=== PATIENT | male | born 1990 | race Caucasian/White ===

== ENCOUNTER → 2023-08-17 10:40 | Outpatient (BNVA) | payer MEDICAID, SELFPAY | PROVIDERS: Family Provider Family Medicine; PCP Pediatrics; Visit Provider Specialist | DX: M25.561 Pain in right knee (principal) | CPT/HCPCS: 73560; 73565 ==

== ENCOUNTER 2023-09-15 12:37 | Outpatient (CLI) | payer MEDICAID, SELFPAY ==
--- NOTE | 2023-09-15 12:42 | MR_ITS ---
WS: [id number] MRI RIGHT KNEE ARTHROGRAM TECHNIQUE: Axial PD, coronal PD fat sat, coronal PD, sagittal PD, and sagittal PD fat-sat images obta ined. Multiplanar imaging obtained post intra-articular administration of gadolinium. CLINICAL INFORMATION: M25.569 - Pain in unspecified knee COMPARISON: 2015 FINDINGS: Distal quadriceps and patella tendons are intact. Hypertrophic patella. ACL and PCL are intact. Mild chondromalacia patella worse involving the medial patella facet. Tiny suprapatellar effusion. Normal bone marrow signal in the patella. No subchondral edema. Medial and lateral patellar retinaculum appe ar intact. Medial and lateral collateral ligaments are intact. Normal popliteus. Normal popliteal fos sa. Small amount of prepatellar soft tissue edema with a small fluid collection suspicious for prepatella r bursitis. Infrapatellar soft tissue edema. Previously described tear involving the medial meniscus with presumed interval meniscectomy. Blunting and thinning of the medial meniscus with post meniscectomy changes in the medial joint compartment. Chondromalacia medial joint compartment with subchondral edema in the medial tibial plateau. Chronic thinning of the lateral meniscus has progressed compared to previous. Blunting of the meniscal root a nd anterior horn lateral meniscus progressed compared to previous. Post arthrogram images demonstrate contrast extending into the meniscectomy defect in the medial join t compartment. Contrast extends into the anterior horn lateral meniscus at the meniscal root consiste nt with lateral meniscal root tear. Blunting of the anterior horn. This is new from previous. IMPRESSION: 1. Prepatellar soft tissue edema with a small fluid collection suspicious for prepatellar bursitis. 2. ACL and PCL are intact. 3. Evidence of prior medial meniscectomy since the prior examination 2014. Chronic thinning of the m edial joint compartment with subchondral edema in the medial tibial plateau. 4. Dissecting contrast extends into the lateral meniscus anterior horn and meniscal root compatible with lateral meniscal tear which appears new from previous. Dissecting contrast seen on the arthrogra m images. Blunting of the anterior horn and meniscal root. 5. Mild chondromalacia patella worse in the medial patella facet. [facility] grading: grade III: partial-thickness cartilage loss with focal ulceration
--- NOTE | 2023-09-15 13:00 | IR_ITS ---
WS: [id number] RIGHT KNEE ARTHROGRAM Fluoroscopic guided right knee arthrogram. CLINICAL INFORMATION: right knee pain, prior knee surgery COMPARISON: None. TECHNIQUE: The procedure including risks, benefits, and complications were discussed with the patient , who agreed to proceed. Timeout was performed. Using sterile technique, the patient was prepped and draped in the usual sterile fashion. After 1% lidocaine injection using fluoroscopic guidance, a 22-g auge spinal needle was advanced into the RIGHT patellofemoral compartment. Subsequently 30 cc of a mi xture containing 10 cc 1% lidocaine, 20 cc normal saline, 10 cc Omnipaque 240, and 0.2 cc gadolinium was administered. No immediate complications. FLUOROSCOPY TIME: 4min [id number] # of spot films: 3 IMPRESSION: Uncomplicated right knee fluoroscopic guided arthrogram. MRI to follow.
== END 2023-09-15 12:38 | disposition home or self-care (01) ==
LOC: RAD 12:38
PROVIDERS: PCP Pediatrics; Visit Provider Specialist
DX: M22.41 Chondromalacia patellae, right knee (principal); M25.561 Pain in right knee; R60.0 Localized edema; R93.6 Abnormal findings on diagnostic imaging of limbs; Z98.890 Other specified postprocedural states
CPT/HCPCS: 27369; 73723; 77002; A9577; Q9966